=== PATIENT | male | born 1960 | race Caucasian/White ===

== ENCOUNTER 2018-01-04 18:06 | Inpatient (IN) | payer BC ==
[~2018-01-04] VITALS: Ht 152.4 cm; Wt 55.8 kg
[2018-01-04] MEDS ORDERED: SODIUM CHLORIDE 0.9% 1,000 ML IV ONE (18:18)
[2018-01-04 18:47] LABS: HEMATOCRIT. 50.6 % (42.0-52.0); HEMOGLOBIN. 14.7 g/dL (14.0-18.0); MEAN CORPUSCULAR HEMOGLOBIN 26.5 pg (28.0-32.0); MEAN CORPUSCULAR VOLUME 91.4 fL (80.0-94.0); MEAN PLATELET VOLUME 9.5 fl (7.4-10.4); PLATELET 327 x1000/uL (130-400); RED BLOOD CELL COUNT 5.53 mill/uL (4.7-6.1); RED CELL DISTRIBUTION WIDTH 15.3 % (11.6-14.6)
[2018-01-04 18:51] LABS: CHLORIDE 98 mEq/L (98-107); ETHANOL BLOOD < 10 mg/dL
[2018-01-04 18:56] LABS: TROPONIN I <0.01 ng/mL ng/mL (0.00-0.04)
[2018-01-04 18:57] LABS: PROTHROMBIN TIME 10.4 sec (9.4-11.6)
[2018-01-04 19:02] LABS: BG BASE EXCESS -31.1 mmol/L (-2.0-2.0); BG CARBOXYHEMOGLOBIN 0.3 % (0.5-1.5); BG DEOXYHEMOGLOBIN 2.7 % (0.0-5.0); BG FRACTION INSPIRED OXYGEN 21; BG HCO3 ACT 2.1 mmol/L (22.0-26.0); BG METHEMOGLOBIN 0.5 % (0.0-1.5); BG OXYGEN SATURATION 97.3 % (92.0-98.5); BG OXYHEMOGLOBIN 96.5 % (94.0-97.0); BG PCO2 12.7 mmHg (35.0-45.0); BG PH 6.827 (7.350-7.450); BG PO2 132.1 mmHg (75.0-100.0); BG SAMPLE SITE RIGHT RADIAL; BG TOTAL HEMOGLOBIN 14.3 g/dL (12.0-18.0); BG VENT MODE ROOM AIR
[2018-01-04] MEDS ORDERED: INSULIN REGULAR (DRIP) 100 UNITS in SODIUM CHLORIDE 0.9% 99 ML IV ONE (19:04)
[2018-01-04] MEDS ORDERED: PIPERACILLIN/TAZ 3.375G PREMIX 50 ML IV ONE (19:15)
[2018-01-04] MEDS ORDERED: CALCIUM CHLORIDE 1GM/10ML SYR IV ONE (19:15)
[2018-01-04] MEDS ORDERED: VANCOMYCIN 1 G PREMIX 200 ML IV SCH (19:15)
[2018-01-04] MEDS ORDERED: SODIUM BICARBONATE 8.4% 1 MEQ/ML 50ML SYR IV ONE (19:15)
[2018-01-04 19:30] LABS: BETA HYDROXYBUTYRATE 12.8 mMol/L (0.0-0.3)
[2018-01-04 19:33] LABS: PHOSPHORUS 3.3 mg/dL (2.5-4.9)
[2018-01-04 20:18] LABS: PLATELET ESTIMATE NORMAL
[2018-01-04 21:05] LABS: CHLORIDE 106 mEq/L (98-107)
[2018-01-04 22:15] LABS: PHOSPHORUS 5.3 mg/dL (2.5-4.9)
[2018-01-05] VITALS (32 sets, daily range): BP systolic 99–125; BP diastolic 65–81
[2018-01-05 00:42] LABS: PHOSPHORUS 3.7 mg/dL (2.5-4.9)
[2018-01-05] MEDS ORDERED: KCL 20MEQ/100ML PREMIX 100 ML IV ONE (02:30)
[2018-01-05] MEDS ORDERED: POTASSIUM CHLORIDE INJ 60 MEQ in DEXT 5% WATER 500 ML IV SCH (03:00)
[2018-01-05] MEDS ORDERED: INSULIN REGULAR IV ONE (07:15)
[2018-01-05] MEDS ORDERED: SODIUM CHLORIDE 0.9% IV ONE (07:15)
[2018-01-05] MEDS ORDERED: KCL 20MEQ/100ML PREMIX 100 ML IV SCH (08:00)
[2018-01-05] MEDS ORDERED: INSULIN REGULAR (DRIP) 100 UNITS in SODIUM CHLORIDE 0.9% 100 ML IV SCH (09:14)
[2018-01-05] MEDS ORDERED: DEXT 5%/0.45% NACL KCL 20MEQ/L 1,000 ML IV SCH (09:15)
[2018-01-05] MEDS ORDERED: DEXTROSE 50% WATER 50ML SYRINGE IV PRN ×4 (09:15)
[2018-01-05] MEDS ORDERED: POTASSIUM CHLORIDE INJ 20 MEQ in SODIUM CHLORIDE 0.45% 1,000 ML IV SCH (10:00)
[2018-01-05] MEDS ORDERED: INSULIN REGULAR (DRIP) 100 UNITS in SODIUM CHLORIDE 0.9% 99 ML IV PRN (10:00)
[2018-01-05] MEDS: BLOOD SUGAR DIAGNOSTIC STRIP TEST SCH ×14 (10:12→23:30)
[2018-01-05] MEDS: PANTOPRAZOLE SODIUM 40 MG/VIAL IV SCH (13:15)
[2018-01-05] MEDS: ENOXAPARIN 40MG/0.4ML SYR SUBCUT SCH (13:15)
[2018-01-05] MEDS: DEXT 5%/0.45% NACL KCL 20MEQ/L 1,000 ML IV SCH ×2 (14:15→20:17)
[2018-01-05] MEDS: VANCOMYCIN 750 MG PREMIX 150 ML IV SCH (14:15)
[2018-01-06] VITALS (48 sets, daily range): BP systolic 103–154; BP diastolic 70–98
[2018-01-06] MEDS: BLOOD SUGAR DIAGNOSTIC STRIP TEST SCH ×21 (00:34→21:00)
[2018-01-06] MEDS: DEXT 5%/0.45% NACL KCL 20MEQ/L 1,000 ML IV SCH ×3 (01:52→11:33)
[2018-01-06] MEDS: VANCOMYCIN 750 MG PREMIX 150 ML IV SCH (04:17)
[2018-01-06 06:05] LABS: HEMATOCRIT. 40.8 % (42.0-52.0); HEMOGLOBIN. 13.5 g/dL (14.0-18.0); MEAN CORPUSCULAR HEMOGLOBIN 26.3 pg (28.0-32.0); MEAN CORPUSCULAR VOLUME 79.4 fL (80.0-94.0); MEAN PLATELET VOLUME 9.1 fl (7.4-10.4); PLATELET 194 x1000/uL (130-400); RED BLOOD CELL COUNT 5.14 mill/uL (4.7-6.1); RED CELL DISTRIBUTION WIDTH 13.7 % (11.6-14.6)
[2018-01-06 06:31] LABS: CHLORIDE 122 mEq/L (98-107)
[2018-01-06 06:47] LABS: HDL CHOLESTEROL 32 mg/dL (40-59); LDL CHOLESTEROL 44 mg/dL (5-100); TROPONIN I < 0.02 ng/mL (0.00-0.04)
[2018-01-06] MEDS: PANTOPRAZOLE SODIUM 40 MG/VIAL IV SCH (08:38)
[2018-01-06] MEDS: ENOXAPARIN 40MG/0.4ML SYR SUBCUT SCH (08:38)
[2018-01-06 09:04] LABS: PLATELET ESTIMATE NORMAL
[2018-01-06] MEDS ORDERED: PIPERACILLIN/TAZ 3.375G PREMIX 50 ML IV SCH (10:00)
[2018-01-06] MEDS ORDERED: IPRATROPIUM/ALBUTEROL 0.5-3(2.5)MG/3ML NEB HHN PRN (10:30)
[2018-01-06 11:19] LABS: CLARITY URINE CLEAR (CLEAR); COLOR URINE YELLOW (YELLOW); KETONES URINE NEGATIVE (NEGATIVE); LEUKOCYTE ESTERASE URINE NEGATIVE (NEGATIVE); NITRITE URINE NEGATIVE (NEGATIVE); OCCULT BLOOD URINE 2+ (NEGATIVE); PROTEIN URINE 1+ (NEGATIVE); SPECIFIC GRAVITY URINE 1.013 (1.005-1.030); UROBILINOGEN URINE 0.2 E.U./dL (0.2-1.0)
[2018-01-06 11:40] LABS: *AMPHETAMINES SCREEN URINE NEGATIVE (NEGATIVE); *BARBITURATES SCREEN URINE NEGATIVE (NEGATIVE); *BENZODIAZEPINES SCREEN URINE NEGATIVE (NEGATIVE); *COCAINE SCREEN URINE NEGATIVE (NEGATIVE); METHADONE URINE SCREEN NEGATIVE (NEGATIVE); OPIATES URINE SCREEN NEGATIVE (NEGATIVE)
[2018-01-06 11:41] LABS: CANNABINOID URINE SCREEN NEGATIVE (NEGATIVE); PHENCYCLIDINE URINE SCREEN NEGATIVE (NEGATIVE)
[2018-01-06] MEDS: PIPERACILLIN/TAZOBACTAM 2.25 G in SODIUM CHLORIDE 0.9% 50 ML IV SCH ×2 (14:03→22:28)
[2018-01-06] MEDS ORDERED: SODIUM BICARBONATE 8.4% 1 MEQ/ML 50ML SYR IV ONE (14:15)
[2018-01-06] MEDS: CITRIC ACID/SODIUM CITRATE SOLN 30ML UDC PO SCH ×2 (14:33→17:04)
[2018-01-06 14:35] LABS: BG BASE EXCESS -15.4 mmol/L (-2.0-2.0); BG CARBOXYHEMOGLOBIN 0.2 % (0.5-1.5); BG DEOXYHEMOGLOBIN 3.1 % (0.0-5.0); BG HCO3 ACT 8.1 mmol/L (22.0-26.0); BG METHEMOGLOBIN 0.4 % (0.0-1.5); BG OXYGEN SATURATION 96.9 % (92.0-98.5); BG OXYHEMOGLOBIN 96.3 % (94.0-97.0); BG PCO2 16.2 mmHg (35.0-45.0); BG PH 7.317 (7.350-7.450); BG PO2 86.4 mmHg (75.0-100.0); BG SAMPLE SITE RIGHT BRACHIAL; BG TOTAL HEMOGLOBIN 13.3 g/dL (12.0-18.0); BG VENT MODE ROOM AIR
[2018-01-06] MEDS: SODIUM BICARBONATE 150 MEQ in DEXTROSE 5% WATER 1,000 ML IV SCH (15:56)
[2018-01-06] MEDS ORDERED: DEXTROSE 50% WATER 50ML SYRINGE IV PRN (19:15)
[2018-01-06] MEDS: GUAIFENESIN 600MG ER TABLET PO SCH (22:28)
[2018-01-06] MEDS: INSULIN GLARGINE UD 100 UNITS/ML SYR SUBCUT SCH (22:29)
[2018-01-06] MEDS: INSULIN LISPRO 100 UNITS/ML SUBCUT SCH (22:43)
[2018-01-06] MEDS ORDERED: INSULIN LISPRO 100 UNITS/ML SUBCUT SCH (22:45)
[2018-01-07] VITALS (67 sets, daily range): BP systolic 101–151; BP diastolic 61–100
[2018-01-07] MEDS: SODIUM BICARBONATE 150 MEQ in DEXTROSE 5% WATER 1,000 ML IV SCH (02:39)
[2018-01-07] MEDS: PIPERACILLIN/TAZOBACTAM 2.25 G in SODIUM CHLORIDE 0.9% 50 ML IV SCH ×3 (05:40→21:20)
[2018-01-07 05:54] LABS: HEMOGLOBIN. 12.1 g/dL (14.0-18.0); MEAN CORPUSCULAR HEMOGLOBIN 26.2 pg (28.0-32.0); MEAN CORPUSCULAR VOLUME 78.1 fL (80.0-94.0); MEAN PLATELET VOLUME 9.1 fl (7.4-10.4); PLATELET 178 x1000/uL (130-400); RED BLOOD CELL COUNT 4.61 mill/uL (4.7-6.1); RED CELL DISTRIBUTION WIDTH 13.8 % (11.6-14.6)
[2018-01-07 06:25] LABS: TROPONIN I 0.05 ng/mL (0.00-0.04)
[2018-01-07 06:30] LABS: PHOSPHORUS 0.3 mg/dL (2.5-4.9)
[2018-01-07] MEDS: BLOOD SUGAR DIAGNOSTIC STRIP TEST SCH ×4 (06:37→20:31)
[2018-01-07] MEDS: INSULIN LISPRO 100 UNITS/ML SUBCUT SCH ×7 (06:43→20:31)
[2018-01-07 07:55] LABS: PLATELET ESTIMATE NORMAL
[2018-01-07] MEDS: POTASSIUM-SODIUM PHOSPHATE POWDER PACKET PO SCH ×3 (08:00→17:04)
[2018-01-07] MEDS ORDERED: LIDOCAINE HCL 1% 20ML VIAL (Pyxis) INJ ONE (08:46)
[2018-01-07] MEDS ORDERED: SODIUM BICARBONATE 4% (2.4MEQ) 5ML VIAL IV ONE (08:46)
[2018-01-07] MEDS ORDERED: IOHEXOL-300 100 ML BOTTLE ONE (08:47)
[2018-01-07] MEDS: SODIUM BICARBONATE 50 MEQ in DEXTROSE 5% WATER 1,000 ML IV SCH ×2 (08:54→20:30)
[2018-01-07] MEDS: GUAIFENESIN 600MG ER TABLET PO SCH ×2 (09:00→20:31)
[2018-01-07] MEDS ORDERED: ENOXAPARIN 30MG/0.3ML SYR SUBCUT SCH (09:00)
[2018-01-07] MEDS ORDERED: POTASSIUM PHOS,M-BASIC-D-BASIC 30 MMOL in DEXT 5% WATER 500 ML IV NR (09:00)
[2018-01-07] MEDS ORDERED: FENTANYL CITRATE/PF 50MCG/ML 2ML VIAL IV ONE (09:30)
[2018-01-07] MEDS ORDERED: FENTANYL CITRATE/PF 50MCG/ML 2ML VIAL ONE (09:37)
[2018-01-07] MEDS ORDERED: BISACODYL 10MG SUPP PR PRN (10:30)
[2018-01-07] MEDS ORDERED: PNEUMOCOCCAL 23-VAL P-SAC VAC 0.5 ML IM ONE (10:30)
[2018-01-07] MEDS ORDERED: INFLUENZA VIRUS VACCINE 0.5ML SYR IM ONE (10:30)
[2018-01-07] MEDS: INSULIN GLARGINE UD 100 UNITS/ML SYR SUBCUT SCH ×2 (12:32→21:20)
[2018-01-07] MEDS ORDERED: SODIUM PHOS,M-BASIC-D-BASIC 15 MM in DEXT 5% WATER 245 ML IV NR (15:00)
[2018-01-08] VITALS (69 sets, daily range): BP systolic 107–146; BP diastolic 50–109
[2018-01-08] MEDS: PIPERACILLIN/TAZOBACTAM 2.25 G in SODIUM CHLORIDE 0.9% 50 ML IV SCH ×3 (05:09→21:26)
[2018-01-08 06:04] LABS: HEMATOCRIT. 33.3 % (42.0-52.0); HEMOGLOBIN. 11.3 g/dL (14.0-18.0); MEAN CORPUSCULAR HEMOGLOBIN 26.2 pg (28.0-32.0); MEAN CORPUSCULAR VOLUME 76.8 fL (80.0-94.0); MEAN PLATELET VOLUME 8.5 fl (7.4-10.4); PLATELET 169 x1000/uL (130-400); RED BLOOD CELL COUNT 4.33 mill/uL (4.7-6.1)
[2018-01-08] MEDS: BLOOD SUGAR DIAGNOSTIC STRIP TEST SCH ×4 (06:07→21:26)
[2018-01-08] MEDS: INSULIN LISPRO 100 UNITS/ML SUBCUT SCH ×5 (06:07→21:26)
[2018-01-08 06:24] LABS: CHLORIDE 107 mEq/L (98-107)
[2018-01-08 06:40] LABS: PHOSPHORUS 2.9 mg/dL (2.5-4.9)
[2018-01-08 07:30] LABS: NUCLEATED RED BLOOD CELLS 2 /100 WBC
[2018-01-08 07:31] LABS: PLATELET ESTIMATE NORMAL
[2018-01-08] MEDS: SODIUM BICARBONATE 50 MEQ in DEXTROSE 5% WATER 1,000 ML IV SCH (07:54)
[2018-01-08] MEDS ORDERED: POTASSIUM CHLORIDE 20MEQ/PACKET PO SCH (08:45)
[2018-01-08] MEDS: GUAIFENESIN 600MG ER TABLET PO SCH ×2 (09:00→21:26)
[2018-01-08] MEDS: INSULIN GLARGINE UD 100 UNITS/ML SYR SUBCUT SCH ×2 (12:00→21:26)
[2018-01-08] MEDS: POTASSIUM-SODIUM PHOSPHATE POWDER PACKET PO SCH ×2 (13:49→18:26)
[2018-01-09] VITALS (12 sets, daily range): BP systolic 122–141; BP diastolic 73–93
[2018-01-09] MEDS: PIPERACILLIN/TAZOBACTAM 2.25 G in SODIUM CHLORIDE 0.9% 50 ML IV SCH (05:14)
[2018-01-09 07:32] LABS: BASOPHILS % 0.1 % (0.0-2.0); EOSINOPHILS % 1.3 % (0.0-5.0); HEMATOCRIT. 35.4 % (42.0-52.0); HEMOGLOBIN. 11.9 g/dL (14.0-18.0); LYMPHOCYTES % 8.5 % (20.0-50.0); MEAN CORPUSCULAR HEMOGLOBIN 26.1 pg (28.0-32.0); MEAN CORPUSCULAR VOLUME 77.6 fL (80.0-94.0); MEAN PLATELET VOLUME 8.5 fl (7.4-10.4); MONOCYTES % 11.3 % (2.0-8.0); NEUTROPHILS % 78.8 % (40.0-76.0); PLATELET 187 x1000/uL (130-400); RED BLOOD CELL COUNT 4.56 mill/uL (4.7-6.1); RED CELL DISTRIBUTION WIDTH 14.1 % (11.6-14.6)
[2018-01-09] MEDS: BLOOD SUGAR DIAGNOSTIC STRIP TEST SCH ×4 (07:57→20:54)
[2018-01-09 08:00] LABS: PHOSPHORUS 3.4 mg/dL (2.5-4.9)
[2018-01-09] MEDS: INSULIN LISPRO 100 UNITS/ML SUBCUT SCH ×4 (08:10→20:54)
[2018-01-09] MEDS: POTASSIUM-SODIUM PHOSPHATE POWDER PACKET PO SCH ×2 (08:17→17:24)
[2018-01-09] MEDS: GUAIFENESIN 600MG ER TABLET PO SCH ×2 (08:17→20:54)
[2018-01-09] MEDS: INSULIN GLARGINE UD 100 UNITS/ML SYR SUBCUT SCH ×2 (10:06→21:30)
[2018-01-09] MEDS ORDERED: CEFAZOLIN 1000MG PREMIX 50 ML IV SCH (14:00)
[2018-01-13 09:06] LABS: A/G RATIO 0.6 (0.7-1.7); ALBUMIN 1.9 g/dL (2.9-4.4); ALPHA-1-GLOBULIN 0.6 g/dL (0.0-0.4); ALPHA-2-GLOBULIN 1.2 g/dL (0.4-1.0); BETA GLOBULIN 0.7 g/dL (0.7-1.3); GAMMA GLOBULINS 0.9 g/dL (0.4-1.8); GLOBULIN TOTAL 3.4 g/dL (2.2-3.9); M-SPIKE Not Observed g/dL (Not Observed); TOTAL PROTEIN SERUM 5.3 g/dL (6.0-8.5)
[2018-01-13 13:07] LABS: ALBUMIN URINE 33.5 % (.); ALPHA-2-GLOBULIN URINE 7.2 % (.); BETA GLOBULIN URINE 21.3 % (.); TOTAL PROTEIN RANDOM URINE 42.1 mg/dL (Not Estab.)
== END 2018-01-09 22:15 | disposition short-term general hospital (02) | DRG 871 ==
LOC: ER 18:28 → MICUSO 19:12 → ENRESERV 01-05 07:05 → 5EST 01-09 00:18
PROVIDERS: ADMIT Internal Medicine; ATTEND Internal Medicine
PROC: 0T9130Z Drainage of Left Kidney with Drainage Device, Percutaneous Approach (ICD-10-PCS; principal; 2018-01-07)
DX: A41.01 Sepsis due to Methicillin susceptible Staphylococcus aureus (principal); E11.10 Type 2 diabetes mellitus with ketoacidosis without coma; J96.00 Acute respiratory failure, unspecified whether with hypoxia or hypercapnia; G93.41 Metabolic encephalopathy; N17.9 Acute kidney failure, unspecified; E44.0 Moderate protein-calorie malnutrition; E87.2 Acidosis; J18.9 Pneumonia, unspecified organism; I13.0 Hypertensive heart and chronic kidney disease with heart failure and stage 1 through stage 4 chronic kidney disease, or unspecified chronic kidney disease; N13.2 Hydronephrosis with renal and ureteral calculous obstruction; E87.0 Hyperosmolality and hypernatremia; I50.9 Heart failure, unspecified; R65.20 Severe sepsis without septic shock; N18.9 Chronic kidney disease, unspecified; E86.0 Dehydration; E87.5 Hyperkalemia; E87.6 Hypokalemia; I48.0 Paroxysmal atrial fibrillation; E83.39 Other disorders of phosphorus metabolism; B96.89 Other specified bacterial agents as the cause of diseases classified elsewhere; Z82.49 Family history of ischemic heart disease and other diseases of the circulatory system; Z83.3 Family history of diabetes mellitus; Z91.14 Patient's other noncompliance with medication regimen; Z89.029 Acquired absence of unspecified finger(s); Z68.24 Body mass index [BMI] 24.0-24.9, adult; E11.22 Type 2 diabetes mellitus with diabetic chronic kidney disease
CPT/HCPCS: 36415; 36600; 50432; 70450; 71045; 71250; 74176; 76770; 80048; 80053; 80061; 80202; 80305; 81003; 82010; 82375; 82550; 82570; 82805; 82962; 83036; 83520; 83605; 83735; 83880; 83883; 84100; 84145; 84155; 84156; 84165; 84166; 84443; 84484; 85025; 85379; 85610; 86060; 86160; 86256; 87040; 87070; 87077; 87205; 87804; 90686; 90732; 92610; 93005; 93306; 93970; 94664; 96365; 96366; 96367; 96368; 97162; 99291; A6261; C1729; C1769; C9113; G0482; J0690; J1650; J1815; J2543; J3010; J3370; J3480; J3490; J7030; J7040; J7050; J7060; J7070; J7620; Q9967; A4315

== ENCOUNTER 2018-03-11 17:08 | Emergency (ER) | payer BC, MEDICAID ==
[~2018-03-11] VITALS: Ht 162.6 cm; Wt 56.2 kg
[2018-03-11 18:15] LABS: BASOPHILS % 1.1 % (0.0-2.0); HEMATOCRIT. 22.8 % (42.0-52.0); HEMOGLOBIN. 7.5 g/dL (14.0-18.0); LYMPHOCYTES % 23.4 % (20.0-50.0); MEAN CORPUSCULAR HEMOGLOBIN 26.7 pg (28.0-32.0); MEAN CORPUSCULAR VOLUME 81.2 fL (80.0-94.0); MEAN PLATELET VOLUME 6.7 fl (7.4-10.4); MONOCYTES % 9.1 % (2.0-8.0); NEUTROPHILS % 64.4 % (40.0-76.0); PLATELET 313 x1000/uL (130-400); RED BLOOD CELL COUNT 2.81 mill/uL (4.7-6.1); RED CELL DISTRIBUTION WIDTH 18.8 % (11.6-14.6)
[2018-03-11 18:19] LABS: CHLORIDE 97 mEq/L (98-107)
[2018-03-11 18:22] LABS: PARTIAL THROMBOPLASTIN TIME 31.3 sec (23.4-31.0); PROTHROMBIN TIME 10.5 sec (9.4-11.6)
[2018-03-11 19:47] LABS: ETHANOL BLOOD < 10 mg/dL
[2018-03-11 22:15] VITALS: BP 142/80
== END 2018-03-11 22:19 | disposition home or self-care (01) ==
LOC: ER 18:21
DX: D50.9 Iron deficiency anemia, unspecified (principal); E11.22 Type 2 diabetes mellitus with diabetic chronic kidney disease; N18.6 End stage renal disease; Z99.2 Dependence on renal dialysis; Z95.9 Presence of cardiac and vascular implant and graft, unspecified
CPT/HCPCS: 36415; 71045; 80053; 84484; 85025; 85044; 85610; 85730; 86850; 86900; 86901; 93005; 99285; G0482; Z7610